=== PATIENT | female | born 1975 | race Caucasian/White ===

== ENCOUNTER 2024-05-21 08:51 | Emergency (ER) | payer MEDICAID ==
[~2024-05-21] VITALS: Ht 170.2 cm; Wt 123.8 kg
[2024-05-21] MEDS: KETOROLAC TROMETH 30 MG/ML 1ML VIAL IM ONE (11:14)
[2024-05-21] MEDS: methylPREDNISolone SOD SUCC 125 MG/2 ML VL IM ONE (11:14)
[2024-05-21 11:49] VITALS: BP 149/92; PULSE 74; RESP 18; TEMP 98.1; O2SAT 99
[2024-05-21] MEDS ORDERED: TRAM50TA2 PO (11:57)
[2024-05-21] MEDS ORDERED: METH4PAK PO (11:57)
--- NOTE | 2024-05-21 11:57 | ED.PDOC ---
Back pain HPI HPI Comments This is a pleasant 49-year-old female with a pertinent MHx of chronic back pain that presents for a flare-up that is located to the bilateral lower paraspinal region. Onto started seven days ago and has been able to get minimal relief with the ibuprofen. Denies any trauma injury. Pain was likely aggravated from heavy lifting. Reports that the pain is nonradiating in his aggravated with lateral movements. Denies history of chronic steroid use or history of osteoporosis Denies any history of cancer Denies fevers chills night sweats nausea vomiting unintentional weight loss Denies IV drug use history of HIV/TB Denies abdominal "tearing" pain Denies syncope Denies urinary incontinence or urinary changes Denies numbness tingling of the groin or inner thigh Denies previous back procedure or surgery Chief Complaint: Back Pain Time Seen by MD: 09:21 Reviewed Notes: Nurses Notes, Medications, Allergies Allergies: Coded Allergies: Morphine (Verified Allergy, Unknown, 05/21/24) Uncoded Allergies: PENICILLIN (Allergy, Unknown, 05/21/24) Home Meds Active Scripts Methylprednisolone (Medrol Dosepak) 4 Mg Marco Antonio, 4 MG PO UD, #21 TAB 0 Refills [facility] Prov:AURORA BUTLER DEVELOPMENT SPECIALIST 05/21/24 Tramadol Hcl (Tramadol Hcl) 50 Mg Tab, 50 MG PO Q8HP PRN for 5 Days, #15 TAB 0 Refills Prov:AURORA BUTLER DEVELOPMENT SPECIALIST 05/21/24 Information Source: Patient Mode of Arrival: Ambulatory All Other Systems: Reviewed and Negative (per hpi) Physical Exam General Appearance: No Apparent Distress, Normal HEENT: Normal ENT Inspection, Pharynx Normal, TMs Normal Neck: Full Range of Motion, Non-Tender, Normal, Normal Inspection Respiratory: Chest Non-Tender, Lungs Clear, No Accessory Muscle Use, No Respiratory Distress, Normal Breath Sounds Cardiovascular: No Murmur, No Gallop, Regular Rate/Rhythm Breast Exam: Deferred Gastrointestinal: No Organomegaly, Non Tender, No Pulsatile Mass, Normal Bowel Sounds, Soft Genitalia: Deferred Pelvic: Deferred Rectal: Deferred Extremities: No calf tenderness, Normal capillary refill, Normal inspection, Normal range of motion, Non-tender, No pedal edema Musculoskeletal : Apperance: Normal Neurologic: Alert, No Motor Deficits, Normal Affect, Normal Mood, No Sensory Deficits Cerebellar Function: Normal Reflexes: Normal Skin: Dry, Normal Color, Warm Lymphatic: No Adenopathy Was a procedure done? Was a procedure done?: No Back Pain Differential Dx Differential Diagnosis: Other X-Ray, Labs, Meds, VS Vital Signs Date Time Temp Pulse Resp B/P (MAP) Pulse Ox O2 Delivery O2 Flow Rate FiO2 05/21/24 11:49 74 18 99 Room Air 05/21/24 11:49 98.1 74 18 149/92 (111) 99 98.1 05/21/24 09:03 97.7 74 17 153/92 (112) 98 Current Medications Medications (Trade) Dose Ordered Sig/Momo Route Start Time Stop Time Status Last Admin Ketorolac Tromethamine (Toradol Injection) 15 mg ONCE ONCE IM 05/21/24 10:45 05/21/24 10:46 DC 05/21/24 11:14 Methylprednisolone Sodium Succinate (Solu Medrol) 125 mg ONCE ONCE IM 05/21/24 10:45 05/21/24 10:46 DC 05/21/24 11:14 X-Ray, Labs, Meds, VS Comment I considered cauda equina, spinal cord compression, vertebral malignancy/mets, acute spinal fracture, vertebral osteomyelitis, epidural abscess, infected or obstructed kidney stone, however this is less likely as the patient does not present with lower back pain red flags symptoms such as bowel or bladder dysfunction, saddle anesthesia, paresthesia, and without any history of malignancy or recent back trauma or spinal interventions. Therefore further imaging studies such as a lumbar MRI were not indicated on today's visit. Presentation most consistent with nonemergent musculoskeletal etiology versus nonemergent disc herniation. ED workup: Defer imaging and lab work for outpatient follow up at this time Disposition: Discharge. Strict return precautions discussed with the patient with full understanding. Supportive care advised (rest, ice, heat, NSAIDs, stretching exercises) Massage muscles with cold pack or ice for 20 minutes 4 times per day. Usually most useful if there is swelling during the first 48 hours Heating pad on the most painful area for 20 minutes to relieve muscle spasm Sleep and the most comfortable sleeping position (usually on the side with knees bent) Light stretching, no strenuous activity, avoid frequent bending, avoid carrying heavy objects Discussed possible benefits of yoga and acupuncture Return precautions discussed including Inability to walk/bear weight Paresthesia/weakness/leg pain Fecal/urinary incontinence Any worsening symptoms Time of 1ST Reevaluation: 11:30 Reevaluation 1ST: Improved Patient Education/Counseling: Diagnosis, Treatment Family Education/Counseling: Diagnosis, Treatment Departure 1 Departure Time of Disposition: 11:56 Impression: Primary Impression: Chronic back pain Qualified Codes: M54.50 - Low back pain, unspecified; G89.29 - Other chronic pain Disposition: 01 HOME / SELF CARE / HOMELESS Condition: Fair e-Prescriptions Methylprednisolone (Medrol Dosepak) 4 Mg Marco Antonio 4 MG PO UD, #21 TAB 0 Refills [facility] Prov: AURORA BUTLER NP 05/21/24 Tramadol Hcl (Tramadol Hcl) 50 Mg Tab 50 MG PO Q8HP PRN for 5 Days, #15 TAB 0 Refills Prov: AURORA BUTLER NP 05/21/24 Critical Care Note Critical Care Time?: No Stability Stability form required: No Heart Score Heart Score: Heart Score Response (Comments) Value History N/A 0 EKG N/A 0 Age N/A 0 Risk Factors N/A 0 Troponin N/A 0 Total 0 AURORA BUTLER NP May 21, 2024 11:57
== END 2024-05-21 12:07 | disposition home or self-care (01) ==
LOC: ER 08:51
DX: G89.29 Other chronic pain (principal); M54.50 Low back pain, unspecified; Z88.0 Allergy status to penicillin; Z79.891 Long term (current) use of opiate analgesic; Z79.899 Other long term (current) drug therapy
CPT/HCPCS: 96372; 99284; J1885; J2919